=== PATIENT | male | born 1975 | race Caucasian/White ===

== ENCOUNTER 2025-01-23 14:33 | Emergency (ER) | payer BC ==
[~2025-01-23] VITALS: Ht 180.3 cm; Wt 122.0 kg
[2025-01-23 14:39] VITALS: O2SAT 97
[2025-01-23 16:13] LABS: BASOPHILS % 0.7 % (0.0-2.0); EOSINOPHILS % 0.7 % (0.0-5.0); HEMATOCRIT. 41.3 % (42.0-52.0); HEMOGLOBIN. 13.8 g/dL (14.0-18.0); LYMPHOCYTES % 17.8 % (20.0-50.0); MEAN PLATELET VOLUME 8.3 fl (7.4-10.4); MONOCYTES % 5.8 % (2.0-8.0); NEUTROPHILS % 75.0 % (40.0-76.0); PLATELET 251 x1000/uL (130-400); RED BLOOD CELL COUNT 4.85 mill/uL (4.7-6.1); RED CELL DISTRIBUTION WIDTH 13.8 % (11.6-14.6)
[2025-01-23 16:35] LABS: CREATININE 1.1 mg/dL (0.6-1.3); TROPONIN I HIGH SENSITIVITY < 4 ng/L (3.0-53); UREA NITROGEN BLOOD 15 mg/dL (9-23)
[2025-01-23 16:37] LABS: ASPARTATE AMINOTRANSFERASE 22 IU/L (<34); BILIRUBIN DIRECT 0.1 mg/dL (<=3.0); BILIRUBIN TOTAL 0.4 mg/dL (0.1-1.0); PROTEIN TOTAL 6.8 g/dL (6.0-8.3)
[2025-01-23 17:25] VITALS: BP 136/76; PULSE 88; RESP 18; TEMP 36.8; O2SAT 100
== END 2025-01-23 17:26 | disposition home or self-care (01) ==
LOC: ER 14:33
DX: R42 Dizziness and giddiness (principal); E11.9 Type 2 diabetes mellitus without complications; I62.9 Nontraumatic intracranial hemorrhage, unspecified
CPT/HCPCS: 36415; 71045; 80048; 80076; 80320; 83735; 84484; 85025; 99285; G0480